=== PATIENT | male | born 1950 | race Caucasian/White ===

== ENCOUNTER 2019-02-20 18:48 | Emergency (ER) | payer OTHER ==
[~2019-02-20] VITALS: Ht 185.4 cm; Wt 77.1 kg
[2019-02-20 19:06] VITALS: BP 138/73
[2019-02-20] MEDS ORDERED: LIDOCAINE /MPF 1% VIAL 5 ML VIAL ONE ×2 (19:49→20:10)
[2019-02-20] MEDS ORDERED: BUPIVACAINE 0.5 % PF 150 MG/30 ML VIAL ONE (20:38)
[2019-02-20] MEDS ORDERED: BUPIVACAINE 0.5 % PF 150 MG/30 ML VIAL TP ONE (21:00)
[2019-02-20] MEDS ORDERED: LIDOCAINE HCL/PF 1% 30 ML VIAL TP ONE ×2 (21:00)
[2019-02-20] MEDS ORDERED: CEPHALEXIN MONOHYDRATE 500 MG CAPSULE PO ONE ×2 (21:57→22:00)
--- NOTE | 2019-02-20 22:07 | NUR ---
wound care and dressing done by [facility].
== END 2019-02-20 22:09 | disposition home or self-care (01) ==
LOC: ER 18:57
DX: S60.455A Superficial foreign body of left ring finger, initial encounter (principal); W45.8XXA Other foreign body or object entering through skin, initial encounter; Y93.89 Activity, other specified; Y92.89 Other specified places as the place of occurrence of the external cause; Y99.8 Other external cause status
CPT/HCPCS: 64450; 99284; J3490 ×5